=== PATIENT | female | born 1995 | race Caucasian/White ===

== ENCOUNTER 2022-04-15 02:58 | Outpatient (CLI) | payer BC, SELFPAY ==
[2022-04-15 11:20] LABS: ALT 94 U/L (14-59); AST 37 U/L (15-37); Alkaline Phosphatase 70 U/L (46-116); Anion Gap 7.2 mmol/L (3-11); BUN 10 mg/dL (7-18); Bilirubin, Total 0.5 mg/dL (0.2-1.0); CO2 30.8 mmol/L (21.0-32.0); CREATININE 0.7 mg/dL (0.55-1.02); Calcium 9.7 mg/dL (8.5-10.1); Chloride 105 mmol/L (98-107); Estimated GFR 123.01 (mL/min/1.73m2); Glucose 88 mg/dL (74-106); Potassium 4.6 mmol/L (3.5-5.1); Sodium 143 mmol/L (136-145); TSH (W/Ref FT4) 3.32 uIU/mL (0.36-3.74); Total Protein 7.7 g/dL (6.4-8.2)
[2022-04-15 12:28] LABS: Hemoglobin A1C 4.7 % (<5.7)
[2022-04-15 18:13] LABS: FSH 6.6 mIU/mL (See Note); Prolactin 8.9 ng/mL (See Note)
[2022-04-21 12:57] LABS: Testosterone, Free 3.31 ng/dL (<0.13-1.06); Testosterone, Total 116 ng/dL (8-60)
[2022-04-23 19:31] LABS: 17-Hydroxyprogesterone 67 ng/dL
== END 2022-04-15 02:59 | disposition home or self-care (01) ==
LOC: LBO 02:58
PROVIDERS: Visit Provider Obstetrics & Gynecology
DX: E28.2 Polycystic ovarian syndrome (principal); N92.0 Excessive and frequent menstruation with regular cycle
CPT/HCPCS: 36415; 80053; 84402; 84403; 83001; 83036; 83498; 84146; 84443

== ENCOUNTER 2022-04-30 12:45 | Outpatient (REF) | payer BC, SELFPAY ==
--- NOTE | 2022-04-30 11:11 | PAPFT_PTH ---
PATIENT: Andree Schwartz LOC: [facility] U#:[id number] AGE/SX: 26/F ROOM: RE04/30/[address]: Whitney Abraham MD : 1995 BED: DIS: 04/30/2022 SPEC #: [id number] RECD: 04/30/22 16:18 STATUS: BELTRAN REMichelle #: [id number] STONE: 04/30/22 11:[address]: Whitney Abraham DEPT: [facility] Cytology RECD BY: Opal Vasquez Tissues: 1 - CX/ENDOCX FOR PAP SMEARS Procedures: PAP THIN PREP/[facility] Screening Comments: [id number]
== END 2022-04-30 12:46 | disposition home or self-care (01) ==
LOC: LBN 12:45
PROVIDERS: Visit Provider Obstetrics & Gynecology
DX: Z12.4 Encounter for screening for malignant neoplasm of cervix (principal)
CPT/HCPCS: 88142